=== PATIENT | male | born 1990 | race African-American/Black ===

== ENCOUNTER 2017-01-01 16:54 | Emergency (ER) | payer MEDICAID ==
[~2017-01-01] VITALS: Ht 172.7 cm; Wt 81.0 kg
[2017-01-01] MEDS ORDERED: LIDOCAINE HCL 1% 20ML VIAL (Pyxis) INJ INFIL ONE (18:00)
[2017-01-01] MEDS ORDERED: BACITRACIN ZINC OINT UDPKT TOP ONE (18:00)
[2017-01-01 20:47] VITALS: BP 145/76
== END 2017-01-01 20:49 | disposition home or self-care (01) ==
LOC: ER 16:55
DX: S01.112A Laceration without foreign body of left eyelid and periocular area, initial encounter (principal); S01.111A Laceration without foreign body of right eyelid and periocular area, initial encounter; Z88.0 Allergy status to penicillin; X58.XXXA Exposure to other specified factors, initial encounter; Y93.89 Activity, other specified; Y99.8 Other external cause status; Y92.89 Other specified places as the place of occurrence of the external cause
CPT/HCPCS: 12011; 70450; 70486; 99284; J3490; X7700; Z7610